=== PATIENT | female | born 1955 | race Caucasian/White ===

== ENCOUNTER → 2019-05-24 07:59 | Outpatient (CLI) | payer OTHER, SELFPAY ==
--- NOTE | ~2019-05-24 | XR_ITS ---
XR pelvis 1-2V 05/24/2019 09:07 Indication: Low back and pelvic pain Procedure: AP pelvis Comparison: 11/03/2010 Findings: Pelvic rings are intact. There is deformity of the right ilium laterally, possibly bone mar row donor site. There is mild osteoarthritis of the hips. Sacral foramen are symmetric. There is lowe r lumbar spondylosis. Impression: 1: No acute fracture. 2: Mild osteoarthritis of the hips. Reviewed, dictated and finalized at location A. T FLUNKY Impression: 1: No acute fracture. 2: Mild osteoarthritis of the hips.
--- NOTE | ~2019-05-24 | XR_ITS ---
XR lumbar spine min 4V 05/24/2019 09:06 Indication: Low back pain. Pain in the right SI joint and hip. Procedure: 5 views lumbar spine Comparison: 11/03/2010 Findings: There is levoscoliosis of the lumbar spine centered at L2-3. There is disc narrowing at L2- 3 through L5-S1. There is mild facet hypertrophy at L4-5 and L5-S1. No acute fracture or traumatic ma lalignment. No evidence for spondylolisthesis. Sacral foramen are symmetric. Sacroiliac joints are sy mmetric. Impression: 1: Mild-moderate lumbar spondylosis with levoscoliosis. Reviewed, dictated and finalized at location A. VISION PRODUCER Impression: 1: Mild-moderate lumbar spondylosis with levoscoliosis.
--- NOTE | ~2019-05-24 | XR_ITS ---
XR shoulder LT min 2V 05/24/2019 09:07 INDICATION: Left shoulder pain PROCEDURE: 4 views left shoulder COMPARISON: No prior studies for comparison. FINDINGS: Fracture, dislocation or subluxation is not identified. The soft tissues appear within norm al limits. No foreign bodies are identified. IMPRESSION: 1: NO ACUTE BONE OR JOINT ABNORMALITY IDENTIFIED. Reviewed, dictated and finalized at location A. TABOUT CREW LEADER
--- NOTE | ~2019-05-24 | XR_ITS ---
XR thoracic spine 2V 05/24/2019 09:06 Indication: Back pain with numbness in the low back Procedure: 3 views thoracic spine Comparison: No prior studies for comparison. Findings: There is mild dextrocurvature of the thoracic spine. There is mild disc narrowing with endp late sclerosis of multiple mid thoracic vertebral body levels. No acute fracture or traumatic malalig nment. No paraspinal soft tissue abnormality. Pedicles intact. Surrounding osseous structures are unr emarkable. Impression: 1: Mild thoracic spondylosis. Reviewed, dictated and finalized at location A. ING MACHINE TENDER Impression: 1: Mild thoracic spondylosis.
== END ==
PROVIDERS: PCP Family Medicine; Visit Provider Chiropractor
DX: M16.0 Bilateral primary osteoarthritis of hip (principal); M47.816 Spondylosis without myelopathy or radiculopathy, lumbar region; M47.814 Spondylosis without myelopathy or radiculopathy, thoracic region; M25.551 Pain in right hip; M25.512 Pain in left shoulder
CPT/HCPCS: 72070; 72110; 72170; 73030

== ENCOUNTER 2019-10-16 08:59 | Outpatient (CLI) | payer OTHER, SELFPAY ==
--- NOTE | 2019-10-16 09:00 | EST_ITS ---
Patient Info Name: Karoline Lei Age: 64 years : 1955 Gender: Female Ht: 63 in Wt: 148 lbs BSA: 1.74 m2 Technical Quality: Good Exam Date: 10/16/2019 9:36 AM Exam Location: [facility] Exam Room: stress lab Patient Status: Outpatient Admit Date: 10/16/2019 Staff Ordering Physician: Cyndi Álvarez NP Collator Hand: Kori Martinez RDCS Attending Provider: JULIUS DOWNING DO Referring Physician: Henri CRANDALL; Exercise Technologist: Rhonda Syed RDCS Exercise Physician: Julius Downing DO Exam Type: CA stress echo Study Info Indications - sob Treadmill exercise stress echocardiogram is performed. Summary 1. 1. Negative Aaron exercise stress test for ischemic ST changes by ECG criteria. However, patient achieved only 79% MPHR for age group which reduces sensitivity of the test. 2. 2. Mildly reduced functional capacity, achieving 7 METs of workload. 3. 3. Appropriate HR response to exercise. 4. 4. Appropriate HR recovery at 1 minute post exercise. 5. 5. Negative stress echocardiogram for ischemia by wall motion analysis. 6. 6. Patient informed of the above results. Stress Echo Findings Left Ventricle Appropriate increase in LV endocardial thickening with systole. Appropriate augmentation of contractility with systole. No wall motion abnormalty. Left Ventricle Normal LV systolic function, no wall motion abnormality. Incidental trace pericardial effusion. Protocol: Aaron Stress ECG Details Stage: REST Duration (min): 9 min : 47 sec Speed (mph): 0.0 Grade (%): 0 HR (bpm): 61 SBP (mmHg): 107 DBP (mmHg): 62 METS: --- Stage: REST Duration (min): 21 min : 20 sec Speed (mph): 0.0 Grade (%): 0 HR (bpm): 69 SBP (mmHg): 107 DBP (mmHg): 62 METS: --- Stage: STAGE 1 Duration (min): 1 min : 0 sec Speed (mph): 1.7 Grade (%): 10 HR (bpm): 97 SBP (mmHg): 107 DBP (mmHg): 62 METS: --- Stage: STAGE 1 Duration (min): 2 min : 0 sec Speed (mph): 1.7 Grade (%): 10 HR (bpm): 110 SBP (mmHg): 107 DBP (mmHg): 62 METS: --- Stage: STAGE 1 Duration (min): 3 min : 0 sec Speed (mph): 1.7 Grade (%): 10 HR (bpm): 101 SBP (mmHg): 132 DBP (mmHg): 68 METS: --- Stage: STAGE 2 Duration (min): 1 min : 0 sec Speed (mph): 2.5 Grade (%): 12 HR (bpm): 115 SBP (mmHg): 132 DBP (mmHg): 68 METS: --- Stage: STAGE 2 Duration (min): 2 min : 0 sec Speed (mph): 2.5 Grade (%): 12 HR (bpm): 116 SBP (mmHg): 164 DBP (mmHg): 73 METS: --- Stage: STAGE 2 Duration (min): 3 min : 0 sec Speed (mph): 2.5 Grade (%): 12 HR (bpm): 121 SBP (mmHg): 164 DBP (mmHg): 73 METS: --- Stage: STAGE 3 Duration (min): 0 min : 6 sec Speed (mph): 0.0 Grade (%): 0 HR (bpm): 120 SBP (mmHg): 164 DBP (mmHg): 73 METS: --- Stage: RECOVERY Duration (min): 0 min : 53 sec Speed (mph): 0.0 Grade (%): 0 HR (bpm): 77 SBP (mmHg): 164 DBP (mm
== END 2019-10-16 09:00 | disposition home or self-care (01) ==
LOC: ANHCARD 09:00
PROVIDERS: PCP Family Medicine; Visit Provider Family Medicine
DX: R06.02 Shortness of breath (principal)
CPT/HCPCS: 93351

== ENCOUNTER 2020-10-17 08:40 | Emergency (ER) | payer MEDICARE, SELFPAY ==
--- NOTE | ~2020-10-17 | XR_ITS ---
EXAMINATION: XR hip LT 2V w AP pelvis DATE: 10/17/2020 09:03 INDICATION: Left hip pain TECHNIQUE: Anteroposterior view of the pelvis and anteroposterior and frog-leg lateral views of the l eft hip were obtained. COMPARISON: 05/24/2019 FINDINGS: Minimal lumbar levocurvature. Alignment is otherwise normal. No fracture. Mild nonuniform joint space narrowing at the bilateral hips, right greater than left. There are also and small marginal osteophy gabriela and subchondral cystic changes at both hips, left greater than right. Severe left-sided predomina nt lower lumbar facet osteoarthritis. Chronic likely bone graft donor site defect along the right sup erior iliac crest. IMPRESSION: 1. Mild to moderate bilateral hip osteoarthritis. 2. Severe left-sided predominant lower lumbar facet osteoarthritis. Reviewed, dictated and finalized at location A.
[2020-10-17 08:46] VITALS: BP 127/78; PULSE 71; RESP 18; TEMP 37; O2SAT 97
[2020-10-17 09:19] VITALS: BP 105/58; PULSE 61; RESP 18; O2SAT 97
--- NOTE | 2020-10-17 09:54 | ED.GENADULT ---
HPI - General Adult General Chief complaint: Extremity Injury, Lower Stated complaint: leg pain Time Seen by Provider: 10/17/20 08:53 Source: patient History of Present Illness HPI narrative: Patient is a 65 y/o female complaining of increasing left hip pain for several days. She describes her pain as burning and rates it as 9/10. There is no pain radiation. She states that laying down seems to aggravate her pain. She has been taking Ibuprofen which did not help much. Related Data Allergies Allergy/AdvReac Type Severity Reaction Status Date / Time nitrofurantoin Allergy Unknown rash Verified 10/17/20 08:44 Review of Systems Review of Systems: All systems reviewed & are unremarkable except as noted in HPI and below Constitutional: Constitutional: Denies chills, Denies fever(s), Denies headache(s) and Denies weakness Eyes: Eyes: Denies blurry vision ENT: Denies headache(s) and Denies neck pain Cardiovascular: Cardiovascular: Denies chest pain and Denies dyspnea Respiratory: Respiratory: Denies cough and Denies dyspnea Gastrointestinal: Gastrointestinal: Denies abdominal pain, Denies diarrhea, Denies nausea and Denies vomiting Genitourinary: Genitourinary: Denies hematuria and Denies dysuria Musculoskeletal: Musculoskeletal: Denies back pain, Denies neck pain and Reports other (left hip pain) Neurologic: Denies headache(s) and Denies weakness PMFSH Past Medical History Medical History Depressive disorder, not elsewhere classified Hyperlipidemia Insomnia ANETTE (obstructive sleep apnea) Family History Family History Father Family history of alcoholism Grandparent Acute myocardial infarction Family history of dementia Mother Carcinoma of colon Other Asthma Social History Social History Smoking status: Never smoker Alcohol intake: never Gender identity (if verbalized by the patient): Female Exam Const: General: no acute distress and well developed Orientation/consciousness: oriented to person, oriented to place, oriented to time and patient oriented x3 HENMT: Head: normocephalic Ears: external ears normal General nose exam: Normal external nose present Eyes: General: appearance normal, both eyes and all related structures Conjunctivae: conjunctivae normal Neck: Neck: normal visual inspection and full ROM Chest: Chest palpation & inspection: normal inspection of the chest and no tenderness Resp: Effort & Inspection: normal respiratory effort Auscultation: clear to auscultation bilaterally Cardio: Rate: regular rate Rhythm: regular rhythm GI: GI Palp: No abdominal tenderness and Yes Soft to palpation Skin: General skin exam: normal color and turgor normal Neuro: General: oriented to person, oriented to place, oriented to time and patient oriented x3 Cognition (Neuro): normal cognition Extrem: General: normal to inspection, full ROM and no pedal edema Psych: Appearance: grossly normal Mental Status: mental status grossly normal Affect: normal affect Course Vital Signs Vital signs: Vital Signs Temperature 37.0 C 10/17/20 08:46 Pulse Rate 71 10/17/20 08:46 Respiratory Rate 18 10/17/20 08:46 Blood Pressure 127/78 10/17/20 08:46 Pulse Oximetry 97 10/17/20 08:46 Temperature 37.0 C 10/17/20 10:45 Pulse Rate 54 L 10/17/20 12:32 Respiratory Rate 16 10/17/20 12:32 Blood Pressure 115/61 10/17/20 12:32 Pulse Oximetry 97 10/17/20 10:18 Medical Decision Making Vital Signs Vital Signs: Vital Signs Temperature 37.0 C 10/17/20 08:46 Pulse Rate 71 10/17/20 08:46 Respiratory Rate 18 10/17/20 08:46 Blood Pressure 127/78 10/17/20 08:46 Pulse Oximetry 97 10/17/20 08:46 Temperature 37.0 C 10/17/20 10:45 Pulse Rate 54 L 10/17/20 12:32 Respiratory Rate 16 10/17/20 12:
[2020-10-17] MEDS: KETOROLAC 30 MG/ML VIAL (*BKC) IM (10:16)
[2020-10-17 10:18] VITALS: BP 107/61; PULSE 72; RESP 18; O2SAT 97
[2020-10-17] MEDS: CYCLOBENZAPRINE HCL 10 MG TABLET PO (10:18)
[2020-10-17 10:45] VITALS: TEMP 37
[2020-10-17 12:32] VITALS: BP 115/61; PULSE 54; RESP 16
== END 2020-10-17 12:33 | disposition home or self-care (01) ==
PROVIDERS: Emergency Provider Emergency Medicine; PCP Family Medicine
DX: M16.0 Bilateral primary osteoarthritis of hip (principal); M54.32 Sciatica, left side; E78.5 Hyperlipidemia, unspecified; G47.33 Obstructive sleep apnea (adult) (pediatric); F32.9 Major depressive disorder, single episode, unspecified; M47.816 Spondylosis without myelopathy or radiculopathy, lumbar region
CPT/HCPCS: 73502; 96372; 99283; A9270; J1885

== ENCOUNTER 2020-10-26 07:28 | Outpatient (CLI) | payer MEDICARE, SELFPAY ==
--- NOTE | ~2020-10-26 | MR_ITS ---
EXAMINATION: MR hip LT wo con DATE: 10/26/2020 09:00 INDICATION: Left hip pain TECHNIQUE: Magnetic resonance imaging (MRI) of the left hip was performed without intravenous contra st. Sequences included full-field axial PD-weighted FS FSE and T1-weighted FSE, coronal of the pelvis with PD-weighted FS FSE, small field of view of the left hip with axial PD-weighted FS FSE, sagitta l PD-weighted FS FSE and coronal PD weighted FS FSE. Additional radial T1-weighted FGR oriented ortho gonal to the acetabular rim were obtained for evaluation of the labrum. COMPARISON: None FINDINGS: Bones/labrum/cartilage: Normal alignment at the bilateral hips. No fracture, avascular necrosis or pathologic marrow replacin g process. There is a tear of the anterosuperior to posterior left acetabular labrum with a few parav ertebral cysts, the largest measuring 8 x 4 mm the posterior superior labrum. Moderate osteoarthritis at the left hip with subarticular cystic change at the posterior aspect of left acetabulum. Minimal subarticular cystic change at the posterior medial aspect of the femoral head. Fluid: Symmetric physiologic amount of fluid within both hip joints. Soft tissues: Normal and symmetric muscle bulk and signal in the pelvis and visualized proximal thighs. The iliopso as, gluteal and proximal hamstring tendons are normal. 1.9 cm subserosal fibroid at the left side of the uterine fundus. There is transient herniation of a portion of the cecum into a right spigelian he rnia which is seen on the earlier sequences including the axial and coronal T1-weighted images of the pelvis but which spontaneously reduces with the hernia containing only fat on the subsequent sequenc es. Limited evaluation of visceral organs of the pelvis is otherwise unremarkable. No pathologically enlarged pelvic/inguinal lymphadenopathy. IMPRESSION: 1. Moderate left hip osteoarthritis with diffuse labral tearing. 2. Moderate lower lumbar spondylosis. 3. 1.9 cm subserosal uterine fibroid. 4. 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 Reviewed, dictated and finalized at location A.
== END 2020-10-26 07:29 | disposition home or self-care (01) ==
LOC: ANHIMG 07:31
PROVIDERS: PCP Family Medicine; Visit Provider Orthopaedic Surgery
DX: M25.552 Pain in left hip (principal); M16.12 Unilateral primary osteoarthritis, left hip; S73.102A Unspecified sprain of left hip, initial encounter; M47.816 Spondylosis without myelopathy or radiculopathy, lumbar region; D25.2 Subserosal leiomyoma of uterus; K43.9 Ventral hernia without obstruction or gangrene
CPT/HCPCS: 73721

== ENCOUNTER 2020-11-01 10:33 | Outpatient (CLI) | payer MEDICARE, SELFPAY ==
--- NOTE | ~2020-11-01 | XR_ITS ---
EXAMINATION: XR lg joint inject/asp w image DATE: 11/01/2020 11:45 INDICATION: Unilateral primary osteoarthritis of the left hip with left hip pain TECHNIQUE: A time-out was performed to verify the patient's name, date of , and procedure to b e performed. The procedure including the risks, benefits, and alternatives was discussed with the pat ient. Risks discussed included bleeding and infection. The patient understood the risks and agreed to proceed. The skin overlying the left hip joint was prepped and draped in usual sterile fashion. An esthetic was administered with 1% lidocaine subcutaneously. A 22 G needle was advanced under fluoros copic guidance into the joint. Injection of 1 mL of Omnipaque 240 confirmed intra-articular position of the needle. Subsequently, injectate consisting of 7 mm a 5:2 mixture of 1% lidocaine: 10 mg/mL K enalog for a total dosage of 20 mg Kenalog was instilled. Washout of contrast was seen confirming int ra-articular administration. The needle was removed and the entry site was cleaned and dressed. Ther e were no immediate complications. Fluoroscopy exposure time was 0.1 minutes. The total number of henri ges was 2. FINDINGS: Real-time fluoroscopy demonstrates the needle in the left hip joint. Patient's pain prior t o procedure:08/26. Patient's pain following the procedure: 04/28. IMPRESSION: 1. Left hip joint injection of local anesthetic and steroid with decrease in the patient's presenting pain. Reviewed, dictated and finalized at location A. IMPRESSION: 1. Left hip joint injection of local anesthetic and steroid with decrease in th e patient's presenting pain.
== END 2020-11-01 10:34 | disposition home or self-care (01) ==
PROVIDERS: PCP Family Medicine; Visit Provider Orthopaedic Surgery
DX: M16.12 Unilateral primary osteoarthritis, left hip (principal)
CPT/HCPCS: 20610; 77002; J3301; Q9966

== ENCOUNTER → 2020-11-25 12:23 | Outpatient (CLI) | payer MEDICARE, SELFPAY ==
--- NOTE | ~2020-11-25 | MM_ITS ---
EXAMINATION: MM screening [facility] BI w derick HISTORY: Screening mammogram TECHNIQUE: Craniocaudal and mediolateral oblique 3-D tomosynthesis images were obtained and synthetic 2-D images were generated. CAD analysis was submitted and interpreted. COMPARISON: 09/04/2017, 10/02/2013 bilateral digital screening mammogram examinations BREAST PARENCHYMAL COMPOSITION: There are scattered areas of fibroglandular density. FINDINGS: There is no evidence of suspicious mass, calcification, or architectural distortion to sugg est malignancy in either breast. There has been no suspicious interval change. IMPRESSION: 1. No mammographic evidence of malignancy. 2. Recommend routine screening mammography in one year. BI-RADS Category 1: Negative Reviewed, dictated and finalized at location A.
== END ==
PROVIDERS: PCP Family Medicine; Visit Provider Nurse Practitioner
DX: Z12.31 Encounter for screening mammogram for malignant neoplasm of breast (principal)
CPT/HCPCS: 77063; 77067

== ENCOUNTER 2021-10-14 12:02 | Outpatient (CLI) | payer MEDICARE, SELFPAY ==
[2021-10-14 17:58] LABS: Basophils Absolute Auto 0.1 K/mm3 (0.0-0.1); Basophils Percent Auto 0.8 % (0.2-1.2); Eosinophils Absolute Auto 0.1 K/mm3 (0-0.3); Eosinophils Percent Auto 1.6 % (0-4.4); Hematocrit 41.6 % (37.0-47.0); Hemoglobin 13.8 g/dL (12.0-15.0); Immature Granulocyte Absolute 0.02 K/mm3 (0.00-0.031); Immature Granulocyte Percent A 0.3 % (0-0.5); Lymphocytes Absolute Auto 1.59 K/mm3 (0.9-3.2); Lymphocytes Percent Auto 20.8 % (18.3-44.2); Mean Corpuscular HGB Conc 33.2 g/dl (32-36); Mean Corpuscular Hemoglobin 31.6 pg (26-34); Mean Corpuscular Volume 95.2 fl (80-100); Mean Platelet Volume 9.3 fl (7.4-10.4); Monocytes Absolute Auto 0.6 K/mm3 (0.1-0.6); Monocytes Percent Auto 7.5 % (2.6-8.5); Neutrophils Absolute Auto 5.3 K/mm3 (1.3-6.7); Platelet Count Result 256 k/mm3 (150-375); Red Blood Count 4.37 M/mm3 (4.2-5.4); Red Cell Distribution Width 12.8 % (11.5-14.5); White Blood Count 7.6 K/mm3 (4.5-10.0)
[2021-10-14 18:07] LABS: Alanine Aminotransferase 15 U/L (6-35); Albumin Level 4.4 g/dL (3.5-5.1); Alkaline Phosphatase 82 U/L (38-126); Amylase 86 U/L (30-110); Anion Gap 8 mmol/L (8-16); Aspartate Amino Transferase 31 U/L (14-36); Bilirubin,Total 0.5 mg/dL (0.2-1.3); Blood Urea Nitrogen 17 mg/dL (7-17); Calcium 9.5 mg/dL (8.4-10.2); Carbon Dioxide 27 mmol/L (22-30); Chloride 105 mmol/L (98-107); Estimated Glomerular Filt Rate > 60; Glucose 93 mg/dL (65-110); Lipase 67 U/L (23-300); Potassium 4.1 mmol/L (3.4-5.0); Sodium 140 mmol/L (137-145)
== END 2021-10-14 12:03 | disposition home or self-care (01) ==
LOC: ANHGOSHLAB 12:04
PROVIDERS: PCP Family Medicine; Visit Provider Nurse Practitioner
DX: R10.9 Unspecified abdominal pain (principal)
CPT/HCPCS: 36415; 80053; 82150; 83690; 85025

== ENCOUNTER 2022-05-20 06:42 | Emergency (ER) | payer MEDICARE, SELFPAY ==
[2022-05-20 06:46] VITALS: BP 118/70; PULSE 67; RESP 16; TEMP 36.7; O2SAT 99
--- NOTE | 2022-05-20 07:16 | ED.SKABFB ---
HPI - Skin/Abscess/Foreign Bdy General Chief complaint: Skin/Abscess/Foreign Body Stated complaint: rash on face since Sunday Time Seen by Provider: 05/20/22 07:07 History of Present Illness HPI narrative: Patient is a 67-year-old female who presents ER with rash to the face. Began to develop on 05/15/2022 between her eyes. She feels like it may have been related to some concealer she was using. It worsened 2 days later. She has been applying topical cortisone without improvement. It is itchy. No fevers or chills or sweats. This morning she started getting some edema beneath her eyelids bilaterally thought she come in for further evaluation. She has yellow crusting in the nasolabial fold. 1 also similar rash. Related Data Home Medications Medication Instructions Recorded Confirmed krill oil 500 mg capsule mg PO 11/03/20 03/23/22 multivitamin 1 tablet PO DAILY 11/03/20 03/23/22 Allergies Allergy/AdvReac Type Severity Reaction Status Date / Time nitrofurantoin Allergy Unknown rash Verified 05/20/22 06:43 Review of Systems Constitutional: Constitutional: Denies chills and Denies fever(s) ENT: Denies dysphagia, Denies nasal congestion and Denies sore throat Respiratory: Respiratory: Denies cough and Denies dyspnea Integumentary/Breasts: Skin/Breast: Reports pruritus, Reports erythema and Reports rash PMFSH Past Medical History Medical History Arthritis of both hips 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 GERD (gastroesophageal reflux disease) Hyperlipidemia Insomnia ANETTE (obstructive sleep apnea) Surgical History Surgical History H/O toe surgery removed bone from right hip to put in right big toe History of bunionectomy Hx of tonsillectomy Family History Family History Father Family history of alcoholism Grandparent Acute myocardial infarction Family history of dementia Mother Carcinoma of colon Other Asthma Social History Social History Smoking status: Never smoker Alcohol intake: never Substance use: never Substance use type: does not use Living arrangements: alone Occupation/Education: retired Gender identity (if verbalized by the patient): Female Agree to blood products: Yes Exam Narrative: GENERAL: Well-appearing, well-nourished, and in no acute distress. HEAD: Normocephalic, atraumatic. EYES: PERRL and EOMI. ENT: Mucous membranes moist. CHEST: Clear to auscultation. No respiratory distress. HEART: Regular rate and rhythm. Normal peripheral pulses. SKIN: Warm, dry. Erythematous rash forehead and between the eyebrows. It is also located in the maxillary region bilaterally making and nasolabial folds. There is yellow crusting of this rash. No pustules or vesicles. No ulcerations. Blanches with palpation. NEURO: Alert and oriented x3. PSYCH: Normal mood and affect. Course Course Emergency Course: Discussed treatment with topical and oral antibiotics. Patient comfortable with this plan. Discharge home. Vital Signs Vital signs: Vital Signs Temperature 98.0 F 05/20/22 06:46 Pulse Rate 67 05/20/22 06:46 Respiratory Rate 16 05/20/22 06:46 Blood Pressure 118/70 05/20/22 06:46 Pulse Oximetry 99 05/20/22 06:46 Oxygen Delivery Room Air 05/20/22 06:46 Temperature 98.0 F 05/20/22 06:46 Pulse Rate 67 05/20/22 06:46 Respiratory Rate 16 05/20/22 06:46 Blood Pressure 118/70 05/20/22 06:46 Pulse Oximetry 99 05/20/22 06:46 Oxygen Delivery Room Air 05/20/22 06:46 Discharge Plan Discharge Clinical Impression: Impetigo Patient Disposition: Home, Self-Care Condition: Stable Instructions: Antibiotic Form, Impetigo (ED) Additional Instructions: Return the
[2022-05-20 07:56] VITALS: BP 113/62; PULSE 65; RESP 18; O2SAT 99
== END 2022-05-20 07:57 | disposition home or self-care (01) ==
PROVIDERS: Emergency Provider Emergency Medicine; PCP Family Medicine
DX: L01.00 Impetigo, unspecified (principal); E78.5 Hyperlipidemia, unspecified; G80.9 Cerebral palsy, unspecified; G47.33 Obstructive sleep apnea (adult) (pediatric)
CPT/HCPCS: 99283

== ENCOUNTER → 2022-08-09 12:54 | Outpatient (CLI) | payer MEDICARE, SELFPAY ==
--- NOTE | ~2022-08-09 | MM_ITS ---
EXAMINATION: MM screening [facility] BI w derick HISTORY: Screening mammogram TECHNIQUE: Craniocaudal and mediolateral oblique 3-D tomosynthesis images were obtained and synthetic 2-D images were generated. CAD analysis was submitted and interpreted. COMPARISON: 11/25/2020, 09/04/2017, 10/02/2013 BREAST PARENCHYMAL COMPOSITION: The breasts are almost entirely fatty. FINDINGS: A small, chronic focal asymmetry is present in the posterior third of the upper inner right breast. No suspicious mass, calcification, or architectural distortion are identified in either [address] to suggest malignancy. There has been no suspicious interval change. IMPRESSION: 1. No mammographic evidence of malignancy. 2. Recommend routine screening mammography in one year. BI-RADS Category 2: Benign finding(s). Reviewed, dictated and finalized at location A.
== END ==
PROVIDERS: PCP Family Medicine; Visit Provider Family Medicine
DX: Z12.31 Encounter for screening mammogram for malignant neoplasm of breast (principal)
CPT/HCPCS: 77063; 77067

== ENCOUNTER 2022-09-15 00:24 | Day surgery (SDC) | payer MEDICARE, SELFPAY ==
[2022-09-05 10:43] VITALS: BMI 25.7
[2022-09-15 09:45] VITALS: BP 137/81; PULSE 60; RESP 18; TEMP 36.3; O2SAT 97
[2022-09-15] MEDS: LACTATED RINGERS 1,000 ML 150 ML IV CONT (09:56)
--- NOTE | 2022-09-15 10:00 | WPDHPUPDATE1 ---
History and Physical Update Update Date/Time: 09/15/22 10:00 History and Physical has been reviewed, including an updated exam of the patient. There are NO changes in the patient's condition. Risks, benefits, and alternatives have been discussed and questions answered. Patient agrees to proceed with procedure.
--- NOTE | 2022-09-15 10:01 | WPDANESEPPF ---
Anes - Initial Pre Proc Eval Procedure: Operation Date: 09/15/22 11:00 Proposed Procedures p Esophagogastroduodenoscopy & Colonoscopy - Pete Minor MD Date/Time: 09/15/22 10:01 Surgeon: Pete Minor MD Pre Op Diagnosis: GERD, family hx colon ca,other fecal abnormalities Patient Data Age: 67 Gender: F Height: 1.6 m Weight: 64.5 kg Last Vital Signs Temp 97.4 F L 09/15/22 09:45 Pulse 60 09/15/22 09:45 Resp 18 09/15/22 09:45 BP 137/81 09/15/22 09:45 Pulse Ox 97 09/15/22 09:45 O2 Del Method Room Air 09/15/22 09:45 Allergies Allergy/AdvReac Type Severity Reaction Status Date / Time nitrofurantoin Allergy Unknown rash Verified 09/15/22 09:40 Home Medications Medication Instructions Recorded Confirmed Type krill oil 500 mg capsule 500 mg PO DAILY 11/03/20 09/15/22 History multivitamin 1 tablet PO DAILY 11/03/20 09/15/22 History oxybutynin chloride 10 mg 10 mg PO DAILY #90 tabs 07/24/22 09/15/22 Rx tablet,extended release 24 hr famotidine 40 mg tablet (Pepcid) 40 mg PO BID #60 tabs 08/24/22 09/15/22 Rx trazodone 50 mg tablet 100 mg PO QHS PRN Insomnia 09/05/22 09/15/22 History lansoprazole 30 mg capsule,delayed 30 mg PO .daily #30 caps 09/15/22 09/15/22 Rx release (Prevacid) Patient hx anesthesia problems: none Family hx anesthesia problems: none Results Review: All pre-operative results and documents have been reviewed as part of the pre-operative evaluation. 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 Family hx of colon cancer GERD (gastroesophageal reflux disease) Hyperlipidemia Insomnia ANETTE (obstructive sleep apnea) Surgical History Surgical History H/O toe surgery removed bone from right hip to put in right big toe History of bunionectomy Hx of tonsillectomy Family History Family History Father Family history of alcoholism Grandparent Acute myocardial infarction Family history of dementia Mother Carcinoma of colon Other Asthma Social History Social History Smoking status: Never smoker Alcohol intake: current Alcohol use details: occasional Substance use: never Substance use type: does not use Lack of Transportation: No Lack of Food: Never True Current Housing: I Have Housing Concerned About Future Housing: No Difficulty Paying Gas/Electric Bills: No Difficulty Paying for Meds: No Currently Unemployed: No Education: Master's Degree or Higher Difficulty w/ Childcare or Family Care: No Living arrangements: alone Occupation/Education: retired Gender identity (if verbalized by the patient): Female Spiritual care concerns: No Agree to blood products: Yes Anes - Eval Final PreProcedure Day of Procedure 09/15/22 10:01 Patient weight: normal Heart: regular rate and rhythm Lungs: clear to auscultation Airway: Mallampati scale class II Neurological: alert and oriented Last oral intake: >/= 8 hours ASA classification: II Emergent: no Anesthetic plan: proceed Anesthesia type and monitoring: general GIVS and standard monitoring Results Review: All pre-operative results and documents have been reviewed as part of the pre-operative evaluation. Informed Consent: The patient's anesthetic plan and its attendant risks and benefits were discussed with the patient/family/POA. Questions were solicited and answers provided to the satisfaction of the patient/family/POA.
[2022-09-15 10:26] VITALS: BP 93/52; PULSE 61; RESP 22; O2SAT 97
--- NOTE | 2022-09-15 10:28 | SUR.OPER ---
EGD START 1007, END 1011 COLONOSCOPY START 1014, END 1025
[2022-09-15 10:36] VITALS: BP 95/54; PULSE 56; RESP 19; O2SAT 97
[2022-09-15 10:46] VITALS: BP 111/61; PULSE 58; RESP 18; O2SAT 98
== END 2022-09-15 10:53 | disposition home or self-care (01) ==
PROVIDERS: PCP Family Medicine; Visit Provider Internal Medicine Gastroenterology
PROC: 0DJ08ZZ Inspection of Upper Intestinal Tract, Via Natural or Artificial Opening Endoscopic (ICD-10-PCS; CPT 43235; principal; 2022-09-15 11:00)
DX: R19.5 Other fecal abnormalities (principal); K57.30 Diverticulosis of large intestine without perforation or abscess without bleeding; D12.2 Benign neoplasm of ascending colon; Z80.0 Family history of malignant neoplasm of digestive organs; K21.00 Gastro-esophageal reflux disease with esophagitis, without bleeding; K29.70 Gastritis, unspecified, without bleeding; G80.9 Cerebral palsy, unspecified; E78.5 Hyperlipidemia, unspecified; G47.33 Obstructive sleep apnea (adult) (pediatric)
CPT/HCPCS: 45380; 43239; 87081; 88305; J2704; J7120

== ENCOUNTER → 2022-09-30 09:21 | Outpatient (CLI) | payer MEDICARE, SELFPAY ==
--- NOTE | ~2022-09-30 | MR_ITS ---
EXAMINATION: MR ankle LT wo con DATE: 09/30/2022 10:36 INDICATION: Left ankle arthritis. Chronic left ankle pain and swelling. TECHNIQUE: Magnetic resonance imaging (MRI) of the left ankle was performed without intravenous contr ast. Sequences included sagittal PD-weighted FS FSE, sagittal PD-weighted FSE, coronal PD-weighted FS FSE, coronal PD-weighted FSE, axial PD-weighted FS FSE, and axial PD-weighted FSE. COMPARISON: Left ankle MRI 06/22/2015, radiograph 09/15/2014 FINDINGS: Medial ankle ligaments: There are changes of prior sprain of deltoid ligament characterized by increased signal in the superf icial component. The deep component of the deltoid ligament is intact. Lateral ankle ligaments: There are changes of prior sprain of anterior talofibular ligament characterized by thickening and in creased signal intensity. Calcaneofibular ligament and posterior talofibular ligament are normal. The re are partial tears of anterior and posterior tibiofibular ligaments. Tendons: The medial and anterior ankle tendons are normal. There are longitudinal split tears of peroneus brev is tendon and peroneus longus tendon. There is edema-like marrow signal intensity of distal fibula ad jacent to the peroneal tendons. The Achilles tendon is normal. Plantar fascia: Normal. There is an enthesophyte at the calcaneal attachment. Bones/other: There is severe ankle joint osteoarthritis including full-thickness cartilage loss, subchondral cysts , subchondral edema-like marrow signal intensity, and osteophytes. There is moderate subtalar joint o steoarthritis. 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 Fluid: There is no joint effusion. IMPRESSION: 1. 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 2. Changes of medial and lateral ankle sprains. 3. Longitudinal split tears of peroneus brevis and peroneus longus tendons. Reviewed, dictated and finalized at location E.
== END ==
PROVIDERS: PCP Podiatrist Foot & Ankle Surgery; Visit Provider Podiatrist Foot & Ankle Surgery
DX: M19.072 Primary osteoarthritis, left ankle and foot (principal); S93.492D Sprain of other ligament of left ankle, subsequent encounter; X58.XXXD Exposure to other specified factors, subsequent encounter
CPT/HCPCS: 73721

== ENCOUNTER → 2022-12-14 11:08 | Outpatient (CLI) | payer MEDICARE, SELFPAY ==
--- NOTE | ~2022-12-14 | CT_ITS ---
EXAMINATION: CT brain wo con DATE: 12/14/2022 11:26 INDICATION: Tendinitis. Bilateral headaches. TECHNIQUE: Computed tomography (CT) of the head was performed without intravenous contrast. The dose- length product was 599.57 mGy-cm. COMPARISON: None FINDINGS: Brain parenchymal volume is normal. No ventriculomegaly or midline shift. Basilar cisterns are patent. Normal differentiation. There are scattered mild periventricular and subcortical white ma tter changes, most likely related to small vessel ischemic disease (microangiopathy). No ventriculome shanna or midline shift. Paranasal sinuses and mastoids are pneumatized. No depressed skull fractures. IMPRESSION: 1. No acute intracranial abnormality. Reviewed, dictated and finalized at location L.
== END ==
PROVIDERS: PCP Otolaryngology; Visit Provider Nurse Practitioner Family
DX: H93.13 Tinnitus, bilateral (principal)
CPT/HCPCS: 70450

== ENCOUNTER 2023-02-05 07:46 | Outpatient (CLI) | payer MEDICARE, SELFPAY | END 2023-02-05 07:47 | disposition home or self-care (01) | LOC: ANHAUDASC 07:48 | PROVIDERS: PCP Family Medicine; Visit Provider Otolaryngology | DX: H93.13 Tinnitus, bilateral (principal); H90.3 Sensorineural hearing loss, bilateral; H69.93 Unspecified Eustachian tube disorder, bilateral | CPT/HCPCS: 92557; 92567 ==

== ENCOUNTER 2023-05-02 11:00 | Outpatient (RCR) | payer MEDICARE, SELFPAY | END 2023-06-05 23:59 | disposition home or self-care (01) | LOC: ANHAUDASC 11:00 | PROVIDERS: PCP Family Medicine; Visit Provider Family Medicine | DX: Z46.1 Encounter for fitting and adjustment of hearing aid (principal) | CPT/HCPCS: 99199; V5261 ==

== ENCOUNTER 2023-08-27 09:00 | Outpatient (RCR) | payer MEDICARE, SELFPAY | END 2023-11-06 23:59 | disposition home or self-care (01) | LOC: ANHAUDASC 09:00 | PROVIDERS: PCP Family Medicine; Visit Provider Family Medicine | DX: Z46.1 Encounter for fitting and adjustment of hearing aid (principal) | CPT/HCPCS: 99199 ==

== ENCOUNTER 2023-10-31 12:19 | Outpatient (CLI) | payer MEDICARE, SELFPAY ==
--- NOTE | ~2023-10-31 | MM_ITS ---
EXAMINATION: MM screening [facility] BI w derick HISTORY: Screening TECHNIQUE: Craniocaudal and mediolateral oblique 3-D tomosynthesis images were obtained and synthetic 2-D images were generated. CAD analysis was submitted and interpreted. COMPARISON: Comparison to multiple prior studies sequentially, with oldest reviewed study dated 11/2020. BREAST PARENCHYMAL COMPOSITION: Not Dense: The breasts are almost entirely fatty. FINDINGS: There is no evidence of suspicious mass, calcification, or architectural distortion to sugg est malignancy in either breast. There has been no suspicious interval change. IMPRESSION: 1. No mammographic evidence of malignancy. 2. Recommend routine screening mammography in one year. BI-RADS Category 1: Negative. Reviewed, dictated and finalized at location B.
== END 2023-10-31 12:20 ==
LOC: MICIMG 12:19
PROVIDERS: PCP Family Medicine; Visit Provider Family Medicine
DX: Z12.31 Encounter for screening mammogram for malignant neoplasm of breast (principal)
CPT/HCPCS: 77063; 77067